=== PATIENT | male | born 1990 | race African-American/Black ===

== ENCOUNTER 2018-10-23 18:58 | Emergency (ER) | payer OTHER ==
[2018-10-23] MEDS ORDERED: DEXAMETHASONE 4 MG TABLET PO ONE (21:16)
[2018-10-23] MEDS ORDERED: KETOROLAC TROMETHAMINE INJ/PF 30 MG/1 ML SDV IV ONE (21:16)
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
[2018-10-23 23:11] VITALS: BP 130/74
== END 2018-10-23 23:07 | disposition home or self-care (01) ==
LOC: ER 18:58
DX: S16.1XXA Strain of muscle, fascia and tendon at neck level, initial encounter (principal); M54.5 Low back pain; M54.6 Pain in thoracic spine; M54.2 Cervicalgia; M41.9 Scoliosis, unspecified; M48.00 Spinal stenosis, site unspecified; V87.7XXA Person injured in collision between other specified motor vehicles (traffic), initial encounter
CPT/HCPCS: 99284; 96374; 72110; 72070; 72125; J1885